=== PATIENT | female | born 1985 | race African-American/Black ===

== ENCOUNTER 2017-11-17 03:26 | Emergency (ER) | payer MEDICAID ==
[~2017-11-17] VITALS: Ht 165.1 cm; Wt 96.0 kg
[2017-11-17 03:40] VITALS: BP 136/96
== END 2017-11-17 06:17 | disposition left against medical advice (07) ==
LOC: ER 03:26
DX: R10.9 Unspecified abdominal pain (principal); Z53.21 Procedure and treatment not carried out due to patient leaving prior to being seen by health care provider